=== PATIENT | female | born 1985 | race Caucasian/White ===

== ENCOUNTER 2019-04-16 10:30 | Outpatient (CLI) | payer OTHER ==
[2019-04-16] MEDS ORDERED: GADOBUTROL 7.5 MMOL/7.5 ML VIAL ONE (10:40)
[2019-04-16] MEDS ORDERED: GADOBUTROL 7.5 MMOL/7.5 ML VIAL IVP ONE (11:02)
--- NOTE | 2019-04-16 14:43 | MRI Report ---
Reason: RADICULOPATHY, LUMBAR REGION OTHER SPECIFIED POSTP Procedure Date: 04/16/2019 Accession Number: [id number] / [id number] Procedure: MRI - Lumbar Spine W/WO CPT Code: FULL RESULT: EXAM: MRI LUMBAR SPINE WITHOUT AND WITH CONTRAST EXAM DATE: 04/16/2019 10:22 AM. CLINICAL HISTORY: RADICULOPATHY, LUMBAR REGION OTHER SPECIFIED POSTOP. COMPARISONS: L SPINE 07/10/2010 9:10 AM. TECHNIQUE: Multiplanar, multisequence T1-weighted and fluid-sensitive sequences of the lumbar spine from T12 to S1 before and after administration of intravenous contrast. Other: None. IV contrast: 7.5 mL Gadavist given IV, no reaction. FINDINGS: Neurologic Structures: The conus terminates at L1. The conus medullaris and cauda equina are unremarkable. Alignment: No scoliosis or spondylolisthesis. Bone Marrow: Five [id number] lumbar vertebral bodies are assumed. No gross fractures or bone lesions. No bone marrow replacement or abnormal enhancement. Disk Levels/Facets: T12-L1: Unremarkable. L1-L2: Unremarkable. L2-L3: Unremarkable. L3-L4: Unremarkable. L4-L5: Mild broad-based bulge. Prominent facets. No central or foraminal stenosis. L5-S1: Surgery at this level with right-sided undersurface hemilaminotomy, similar to the 2009 comparison. Persistent broad-based bulge is present, touching both S1 roots in the subarticular zones. This configuration is similar to 2010. No extrusions are seen. Mild bilateral foraminal stenosis, also similar. Spinal Canal: No enhancing masses within the spinal canal. No epidural abscess. Musculature: Mild fatty atrophy of the multifidus muscle is seen. Other: The visualized retroperitoneum is unremarkable. IMPRESSION: 1. Conus terminates at L1 which is normal. No scoliosis, no listhesis. 2. L4-L5 shows a mild broad-based bulge and prominent facets. No central or foraminal stenosis. 3. L5-S1 shows previous surgery with right-sided undersurface hemilaminotomy. This is similar to 2010. Persistent broad-based bulge touching both S1 roots in the subarticular zones. No extrusions, mild bilateral foraminal stenosis. These findings are similar since 2009. Comment: The following findings are so common in adults without low back pain that while we report their presence, they must be interpreted with caution and in the context of the clinical situation. (Reference Fredak et al, Spine 2001) Prevalence of findings in patients without low back pain: Disk degeneration (any evidence): 92% Disk desiccation/T2 signal loss: 83% Disk height loss: 56% Disk bulge: 64% Disk protrusion: 32% Annular tear/high intensity zone: 38% [facility]
== END 2019-04-16 12:00 ==
LOC: DI 10:30
PROVIDERS: ATTEND Family Medicine
DX: M54.16 Radiculopathy, lumbar region (principal); Z98.890 Other specified postprocedural states
CPT/HCPCS: 72158; A9585

== ENCOUNTER 2019-10-12 09:25 | Outpatient (CLI) | payer OTHER ==
[2019-10-12] MEDS ORDERED: GADOBUTROL 7.5 MMOL/7.5 ML VIAL ONE (09:39)
[2019-10-12] MEDS ORDERED: GADOBUTROL 7.5 MMOL/7.5 ML VIAL IVP ONE (10:37)
--- NOTE | 2019-10-12 13:45 | MRI Report ---
Reason: HEADACHES, FACIAL NUMBNESS Procedure Date: 10/12/2019 Accession Number: [id number] / [id number] Procedure: MRI - Brain W/WO CPT Code: Final Report FULL RESULT: EXAM: MRI BRAIN WITHOUT AND WITH CONTRAST EXAM DATE: 10/12/2019 10:49 AM. CLINICAL HISTORY: Headaches, right sided facial numbness. COMPARISON: None. TECHNIQUE: Multiplanar, multisequence T1-weighted and fluid-sensitive MR sequences of the brain were performed before and after administration of intravenous contrast. Sequences optimized for routine evaluation. Other: None. IV Contrast: 7.5 mL Gadavist. FINDINGS: No abnormal restricted diffusion signal or magnetic susceptibility is present in the brain parenchyma. No cerebellar tonsillar ectopia is present. Ventricles and sulci are within normal limits. No extra-axial fluid collection is present. No abnormal T1 shortening is present in the brain parenchyma. No abnormal T2 or FLAIR hyperintensities are identified in the brain parenchyma. There is an expected flow void in the major intracranial vessels at the skull base. No enhancing mass is present in either cerebellopontine angle or in either internal auditory canal. No enhancing mass is identified in the brain parenchyma. No mass is identified along the cisternal segment of either 5th cranial nerve or in either Meckel's cave. The cavernous sinuses enhance and symmetric fashion. No mass is seen in the region of either foramen rotundum or foramen ovale. Expected enhancement is present in the major dural venous sinuses. There is motion degradation of some of the imaging sequences. IMPRESSION: 1. Normal brain MRI. [facility]IA
== END 2019-10-12 09:26 | disposition home or self-care (01) ==
LOC: DI 09:25
PROVIDERS: ATTEND Physician Assistant
DX: R51 Headache (principal); R20.0 Anesthesia of skin
CPT/HCPCS: 70553; A9585

== ENCOUNTER 2020-04-17 08:51 | Day surgery (SDC) | payer OTHER ==
[~2020-04-17 08:51] MED LIST: LACTATED RINGERS 500 ML IV ONE
[2020-04-17] MEDS ORDERED: LACTATED RINGERS 1,000 ML IV ONE ×2 (09:02→10:51)
[2020-04-17 09:09] LABS: HCG UR QUAL NEGATIVE
[2020-04-17] MEDS ORDERED: MIDAZOLAM 2 MG/2 ML VIAL IVP ONE (10:25)
[2020-04-17] MEDS ORDERED: fentaNYL 100 MCG/2 ML VIAL IVP ONE (10:25)
[2020-04-17] MEDS ORDERED: LIDO GARGLE 30 ML BOTTLE PO ONE (10:29)
[2020-04-17] MEDS ORDERED: BENZOCAINE/TETRACAINE/BUTAMBEN 20 GM TOP ONE (10:30)
[2020-04-17] MEDS ORDERED: LIDO GARGLE 30 ML BOTTLE ONE (10:35)
[2020-04-17 11:26] VITALS: BP 120/85
== END 2020-04-17 08:52 | disposition home or self-care (01) ==
LOC: SDS 08:51
PROVIDERS: ATTEND Surgery
PROC: 0DB68ZX Excision of Stomach, Via Natural or Artificial Opening Endoscopic, Diagnostic (ICD-10-PCS; 2020-04-17)
PROC: 0DB38ZX Excision of Lower Esophagus, Via Natural or Artificial Opening Endoscopic, Diagnostic (ICD-10-PCS; 2020-04-17)
PROC: 0DB48ZX Excision of Esophagogastric Junction, Via Natural or Artificial Opening Endoscopic, Diagnostic (ICD-10-PCS; 2020-04-17)
PROC: 0DB98ZX Excision of Duodenum, Via Natural or Artificial Opening Endoscopic, Diagnostic (ICD-10-PCS; principal; 2020-04-17 10:00)
DX: K21.9 Gastro-esophageal reflux disease without esophagitis (principal); K44.9 Diaphragmatic hernia without obstruction or gangrene
CPT/HCPCS: 43239; 81025; A9270; J7120